=== PATIENT | male | born 2000 | race Caucasian/White ===

== ENCOUNTER 2023-09-04 22:07 | Emergency (ER) | payer SELFPAY ==
[~2023-09-04] VITALS: Ht 182.9 cm; Wt 84.1 kg
[2023-09-04 22:11] VITALS: BP 135/98; PULSE 100; RESP 20; TEMP 98; O2SAT 96
== END 2023-09-04 22:28 ==
LOC: ER 22:10
DX: Z04.1 Encounter for examination and observation following transport accident (principal)
CPT/HCPCS: 99283